=== PATIENT | male | born 1945 | race Caucasian/White ===

== ENCOUNTER 2017-02-01 08:35 | Inpatient (IN) | payer OTHER, BC ==
[~2017-02-01] VITALS: Ht 170.2 cm; Wt 88.5 kg
[~2017-02-01 08:35] MED LIST: ADULT LOW DOSE81 M1 PO; ASPIR-LOW81 MG PO; ASPIRIN CHEWABL81 M1 PO; AVAPRO150 MG PO; Bactrim,Septra DS 80 PO; CARVEDILOL12.5 MG PO; CELEXA40 MG PO; CHO PO; COLACE100 MG PO; CRESTOR40 MG PO; DAILY VITAMIN1 EAC4 PO; DAILY VITAMIN1 EAC8 PO; DILANTIN100 MG PO; DURAGESIC50 MCG TD; EMS NITROSTAT0.4 M1 SL; ESCITALOPRAM OX20 MG PO; FERROUS GLUCON324 MG PO; FLOMAX0.4 MG PO; GABAPENTIN300 MG PO; GLIPIZIDE5 MG PO; GLUCOPHAGE1000 MG PO; GLUCOSAMIN PO; IMDUR30 MG PO; IRON325 M1 PO; JANUVIA100 MG PO; KEFLEX500 MG PO; LANTUS (UNITS)1 UNIT SC; LANTUS 10100 UNITS/ SC; LANTUS 3 M100 UNITS/ SC; LEXAPRO10 MG PO; LEXAPRO20 MG PO; LISINOPRIL5 MG PO; LO-DOSE ASPIRIN81 M1 PO; LO-DOSE ASPIRIN81 M2 PO; LOSARTAN POTASS25 MG PO; LYRICA75 MG PO; METFORMIN HCL1000 MG PO; METOPROLOL SUCC25 MG PO; NITROSTAT0.4 MG SL; NOVOLOG 10100 UNITS/ SC; NOVOLOG PE100 UNITS/ SC; NOVOLOG100 UNIT/3 SQ; PERCOCET 10/1 TABLET PO; PERCOCET 5/31 TABLET PO; PHENYTOIN SODI100 M1 PO; PLAVIX75 MG PO; PROTONIX40 MG PO; QUETIAPINE FUM400 MG PO; SEROQUEL100 MG PO; SEROQUEL400 MG PO; SINEMET CR 25-1 EACH PO; VALTREX1000 MG PO; ZOFRAN8 MG PO; [UNRECOGNIZED DRUG - REMARK]
[2017-02-01 09:45] LABS: HEMATOCRIT 31.2 % (38.0-50.0); MCH 29.7 PG (29.0-34.0); MCHC 31.7 G/DL (30.0-36.0); MCV 93.7 FL (86-99); MEAN PLAT.VOLUME 9.4 uM^3 (9.0-12.4); PLATELET COUNT 232 K/uL (156-360); RBC DIS.WIDTH-CV 12.7 % (11.8-14.6); RBC DIS.WIDTH-SD 43.6 % (39-53); RED BLOOD COUNT 3.33 M/uL (4.00-5.50); WHITE BLOOD COUNT 7.6 K/uL (4.1-10.2)
[2017-02-01 09:50] LABS: PROTHROMBIN TIME 11.1 SEC (10.2-12.9)
[2017-02-01 09:53] LABS: PTT 37.7 SEC (25-37)
[2017-02-01 09:59] LABS: CHLORIDE 108 mEq/L (99-109); POTASSIUM 5.2 mEq/L (3.7-5.4); SODIUM 143 mEq/L (136-147)
[2017-02-01 10:01] LABS: GLUCOSE 339 mg/dL (70-99)
[2017-02-01 10:02] LABS: ANION GAP 8 MEQ/L (2-14)
[2017-02-01 10:04] LABS: GFR ESTIMATE (CALCULATED) 43 mL/min/
[2017-02-01 10:05] LABS: UREA NITROGEN (BUN) 36 mg/dL (9-23)
[2017-02-01 10:07] LABS: TROP-I INTERPRETATION NEGATIVE; TROPONIN-I 0.04 ng/mL (0.0-0.30)
[2017-02-01] MEDS ORDERED: FERGON324 MG PO (14:01)
[2017-02-01] MEDS ORDERED: COZAAR25 MG PO (14:02)
[2017-02-01] MEDS ORDERED: CENTRUM SILVER1 EAC1 PO (14:03)
[2017-02-01] MEDS ORDERED: TOPROL XL50 MG PO (14:03)
[2017-02-01] MEDS ORDERED: COMBIVENT RESPIM4 GM IH (14:04)
[2017-02-01] MEDS ORDERED: FLONASE16 G1 BOTH NARES (14:05)
[2017-02-01] MEDS ORDERED: NITROSTAT0.4 MG SL (14:05)
[2017-02-01] MEDS ORDERED: LASIX40 MG PO (14:05)
[2017-02-01] MEDS ORDERED: REFRESH TEARS15 ML BOTH EYES (14:06)
[2017-02-01] MEDS ORDERED: CANNABIDIOL PO (14:07)
[2017-02-01 15:40] LABS: TROP-I INTERPRETATION NEGATIVE; TROPONIN-I 0.05 ng/mL (0.0-0.30)
[2017-02-01 16:18] VITALS: BP 166/88
[2017-02-01 19:30] VITALS: BP 142/65
[2017-02-01 21:33] LABS: TROP-I INTERPRETATION NEGATIVE; TROPONIN-I 0.05 ng/mL (0.0-0.30)
[2017-02-01 23:35] VITALS: BP 120/69
[2017-02-02 03:39] VITALS: BP 123/72
[2017-02-02 07:11] VITALS: BP 130/63
[2017-02-02 07:15] LABS: ANION GAP 6 MEQ/L (2-14); CHLORIDE 105 MEQ/L (99-109); GFR ESTIMATE (CALCULATED) 46 mL/min/; GLUCOSE 176 mg/dL (70-99); POTASSIUM 4.3 MEQ/L (3.7-5.4); SAMPLE HEMOLYSIS CHECK 0; SAMPLE ICTERIC CHECK 0; SAMPLE LIPEMIA CHECK 0; SODIUM 142 MEQ/L (136-147); UREA NITROGEN (BUN) 38 mg/dL (9-23)
[2017-02-02 11:19] LABS: POINT-OF-CARE METER ID UU14188625
[2017-02-02 15:16] VITALS: BP 116/56
[2017-02-02 16:42] LABS: POINT-OF-CARE METER ID UU13113717
[2017-02-02 20:07] VITALS: BP 154/75
[2017-02-02 21:02] LABS: POINT-OF-CARE METER ID UU14188625
[2017-02-02 23:49] VITALS: BP 119/65
[2017-02-03 04:06] VITALS: BP 126/71
[2017-02-03 06:41] LABS: MCH 30.4 PG (29.0-34.0); MCHC 33.1 G/DL (30.0-36.0); MCV 91.9 FL (86-99); MEAN PLAT.VOLUME 9.6 uM^3 (9.0-12.4); PLATELET COUNT 177 K/uL (156-360); RBC DIS.WIDTH-CV 12.6 % (11.8-14.6); RBC DIS.WIDTH-SD 41.7 % (39-53); RED BLOOD COUNT 2.83 M/uL (4.00-5.50); WHITE BLOOD COUNT 6.2 K/uL (4.1-10.2)
[2017-02-03 06:42] LABS: POINT-OF-CARE METER ID UU14174225
[2017-02-03 07:07] VITALS: BP 115/71
[2017-02-03 07:55] LABS: ANION GAP 8 MEQ/L (2-14); CHLORIDE 104 MEQ/L (99-109); GFR ESTIMATE (CALCULATED) 49 mL/min/; POTASSIUM 4.4 MEQ/L (3.7-5.4); SAMPLE HEMOLYSIS CHECK 0; SAMPLE ICTERIC CHECK 0; SAMPLE LIPEMIA CHECK 0; SODIUM 141 MEQ/L (136-147); UREA NITROGEN (BUN) 37 mg/dL (9-23)
[2017-02-03 07:56] LABS: GLUCOSE 319 mg/dL (70-99)
[2017-02-03] MEDS ORDERED: FUROSEMIDE40 MG PO (10:10)
[2017-02-03 11:56] LABS: HEMATOCRIT 27.8 % (38.0-50.0); MCV 92.4 FL (86-99)
[2017-02-04 21:26] LABS: POINT-OF-CARE METER ID UU14188625
== END 2017-02-03 14:15 | disposition home health service (06) | DRG 291 ==
LOC: EME 08:35 → 5SOUTH 14:35 → EDOF 14:35 → ENRESERV 14:40 → 5SOUTH 15:37 → ENPENDDIS 02-03 → 5SOUTH 02-03 14:15
PROVIDERS: Emergency Medicine; Hospitalist; Physician Assistant Medical
DX: I11.0 Hypertensive heart disease with heart failure (principal); I50.23 Acute on chronic systolic (congestive) heart failure; N17.9 Acute kidney failure, unspecified; J96.01 Acute respiratory failure with hypoxia; J44.9 Chronic obstructive pulmonary disease, unspecified; G47.33 Obstructive sleep apnea (adult) (pediatric); E11.9 Type 2 diabetes mellitus without complications; E78.5 Hyperlipidemia, unspecified; I25.10 Atherosclerotic heart disease of native coronary artery without angina pectoris; I25.5 Ischemic cardiomyopathy; I25.810 Atherosclerosis of coronary artery bypass graft(s) without angina pectoris; N40.0 Benign prostatic hyperplasia without lower urinary tract symptoms; Z79.4 Long term (current) use of insulin; Z86.73 Personal history of transient ischemic attack (TIA), and cerebral infarction without residual deficits; Z23 Encounter for immunization; I25.2 Old myocardial infarction; Z87.891 Personal history of nicotine dependence; Z95.5 Presence of coronary angioplasty implant and graft; Z79.82 Long term (current) use of aspirin; Z91.041 Radiographic dye allergy status; Z66 Do not resuscitate
CPT/HCPCS: 71010; 80048; 81003; 82948; 83880; 84484; 85014; 85018; 85027; 85610; 85730; 90686; 93005; 94640 76; 94799; 99202; 99281; 99285; J1650; J1815; J1940

== ENCOUNTER 2017-06-12 15:24 | Emergency (ER) | payer OTHER, BC ==
[~2017-06-12] VITALS: Ht 167.6 cm; Wt 91.5 kg
[~2017-06-12 15:24] MED LIST changes: +ARTIFICIAL TEAR15 M1 BOTH EYES; +CBD OIL PO; +CENTRUM SILVER1 EAC1 PO; +COMBIVENT RESPIM4 GM IH; +COZAAR25 MG PO; +FERGON324 MG PO; +FLONASE16 G1 BOTH NARES; +FUROSEMIDE40 MG PO; +LASIX40 MG PO; +TOPROL XL50 MG PO
[2017-06-12 18:08] LABS: HEMATOCRIT 29.2 % (38.0-50.0); HEMOGLOBIN 9.2 G/DL (12.5-16.6); MCH 28.5 PG (29.0-34.0); MCHC 31.5 G/DL (30.0-36.0); MCV 90.4 FL (86-99); PLATELET COUNT 214 K/uL (156-360); RBC DIS.WIDTH-CV 14.2 % (11.8-14.6); RBC DIS.WIDTH-SD 46.8 % (39-53); RED BLOOD COUNT 3.23 M/uL (4.00-5.50); WHITE BLOOD COUNT 5.3 K/uL (4.1-10.2)
[2017-06-12 18:16] LABS: ALBUMIN 4.1 g/dL (3.2-4.8); CHLORIDE 102 mEq/L (99-109); POTASSIUM 4.5 mEq/L (3.7-5.4); SODIUM 141 mEq/L (136-147)
[2017-06-12 18:18] LABS: GLUCOSE 159 mg/dL (70-99)
[2017-06-12 18:19] LABS: TOTAL PROTEIN 7.2 g/dL (6.4-8.3)
[2017-06-12 18:20] LABS: TOTAL BILIRUBIN 0.3 mg/dL (0.0-1.0)
[2017-06-12 18:22] LABS: ALKALINE PHOSPHATASE 68 IU/L (3-129); CREATININE 1.8 mg/dL (0.6-1.3); GFR ESTIMATE (CALCULATED) 40 mL/min/ (58.99-99999)
[2017-06-12 18:23] LABS: UREA NITROGEN (BUN) 31 mg/dL (9-23)
[2017-06-12 18:24] LABS: AST (GOT) 33 IU/L (2-34)
[2017-06-12 18:25] LABS: ALT (GPT) 31 IU/L (3-49)
[2017-06-12] MEDS ORDERED: FUROSEMIDE40 MG PO ×2 (20:00→20:01)
[2017-06-12] MEDS ORDERED: LIPITOR80 MG PO (20:03)
[2017-06-12] MEDS ORDERED: LOSARTAN POTASS25 MG PO (20:03)
[2017-06-12] MEDS ORDERED: CORTIZONE-1099 GM TP (20:03)
[2017-06-12 22:32] VITALS: BP 125/69
== END 2017-06-12 22:46 | disposition home or self-care (01) ==
LOC: EME 15:24
PROVIDERS: Physician Assistant
DX: E86.0 Dehydration (principal); I11.0 Hypertensive heart disease with heart failure; I50.9 Heart failure, unspecified; N17.9 Acute kidney failure, unspecified; G20 Parkinson's disease; J44.9 Chronic obstructive pulmonary disease, unspecified; G47.30 Sleep apnea, unspecified; E78.5 Hyperlipidemia, unspecified; E11.9 Type 2 diabetes mellitus without complications; R56.9 Unspecified convulsions; I34.0 Nonrheumatic mitral (valve) insufficiency; I25.2 Old myocardial infarction; Z95.1 Presence of aortocoronary bypass graft; Z87.891 Personal history of nicotine dependence; Z86.73 Personal history of transient ischemic attack (TIA), and cerebral infarction without residual deficits; Z79.4 Long term (current) use of insulin; Z79.82 Long term (current) use of aspirin; Z91.041 Radiographic dye allergy status; Z88.8 Allergy status to other drugs, medicaments and biological substances
CPT/HCPCS: 71046; 80053; 83880; 85027; 93971; 99281; 99284; J7030